=== PATIENT | female | born 1980 | race African-American/Black ===

== ENCOUNTER 2017-12-18 23:32 | Emergency (ER) | payer OTHER ==
--- NOTE | 2017-12-18 23:45 | PDOC ---
History of Present Illness - General Stated Complaint: INJURY TO FINGER Time Seen by Provider: 12/18/17 23:44 History Source: Patient Exam Limitations: No Limitations - History of Present Illness Initial Comments: 12/19/17 01:26 Best Contact: PCP: N/A Pmhx: Epilepsy/last seizure 2016 Pshx:0 Allergies: Dilantin/hives FH:0 Social Hx: Cigarettes/ 0 Alcohol/ 0 Drugs/0 LMP: depo-vera 37-year-old female who is right hand dominant presents to the ER complaining of pain to the left medial hand. Patient states while running on the treadmill and the gym, she slipped and fell onto her left hand. Patient denies head injury, neck or back pains, chest pain, extremity numbness or tingling sensation. Left hand pain is described as 6/10 dull nonradiating intermittent discomfort which is exacerbated on movement and alleviated minimally at rest. Patient denies any other complaints. Procedure: Left hand: ulnar gutter splint/ 4" fiberglass with 3" pete Past History - Past Medical History Allergies/Adverse Reactions: Allergies Allergy/AdvReac Type Severity Reaction Status Date / Time banana [Banana] Allergy Itching Verified 12/19/17 00:57 phenytoin sodium Allergy Verified 12/19/17 00:57 [From Dilantin] phenytoin sodium extended Allergy Verified 12/19/17 00:57 [From Dilantin] Home Medications: Ambulatory Orders Oxycodone HCl/Acetaminophen [Percocet 5-325 mg Tablet] 1 tab PO Q6H #12 tablet MDD 3 12/19/17 Anemia: No Asthma: No Cancer: No Cardiac Disorders: No Diabetes: No HTN: No Seizures: Yes Thyroid Disease: No - Reproductive History (#): 6 Para: 5 Cervical CA: No Dysfunctional Uterine Bleeding: No Ectopic : No Endometrial CA: No Polycystic Ovaries: No Therapeutic (s) & number: No Tubal Ligation: No Spontaneous : 0 - Immunization History Immunization Up to Date: Yes - Suicide/Smoking/Psychosocial Hx Smoking Status: No Smoking History: Never smoked Have you smoked in the past 12 months: No Number of Cigarettes Smoked Daily: 0 Hx Alcohol Use: No Drug/Substance Use Hx: No Substance Use Type: None Hx Substance Use Treatment: No Review of Systems - Review of Systems Able to Perform ROS?: Yes Comments:: 12/19/17 01:34 CONSTITUTIONAL: Absent: fever, chills, diaphoresis, generalized weakness, malaise, loss of appetite MUSCULOSKELETAL: +left medial hand pain/left 5th mc Absent: myalgia, arthralgia, joint swelling SKIN: Absent: rash, itching, pallor HEMATOLOGIC/IMMUNOLOGIC: Absent: easy bleeding, easy bruising, lymphadenopathy, frequent infections Is the patient limited French proficient: No ED Treatment Course - RADIOLOGY Radiograph Interpretation: 12/19/17 01:57 Xray left hand/ oblique displaced left 5th mc *DC/Admit/Observation/Transfer Diagnosis at time of Disposition: Left hand fracture Qualifiers: Encounter type: initial encounter Fracture type: closed Qualified Code(s): S62.92XA - Unspecified fracture of left wrist and hand, initial encounter for closed fracture - Discharge Dispostion Disposition: HOME Condition at time of disposition: Stable Decision to Admit order: No - Prescriptions Prescriptions: Oxycodone HCl/Acetaminophen [Percocet 5-325 mg Tablet] 1 tab PO Q6H #12 tablet MDD 3 - Referrals Referrals: Tony Gutierrez MD [Staff Physician] - - Patient Instructions Printed Discharge Instructions: DI for a Hand Fracture Additional Instructions: Ice 20 mins on alternate with 20 mins off for 48 horus while awake Tylenol alternate with motrin as needed for pain Keep your left hand elevated Follow up with the Orthopedics surgeon listed on your discharge this week Return to the ER for severe/persistent/worsening symptoms - Post Discharge Activity Forms/Work/School Notes: Back to Work
[2017-12-19 01:02] VITALS: BP 148/72; PULSE 84; TEMP 97.8; BMI 23.3
== END 2017-12-19 01:43 | disposition home or self-care (01) ==
LOC: JER 23:32
DX: S62.397A Other fracture of fifth metacarpal bone, left hand, initial encounter for closed fracture (principal); W31.89XA Contact with other specified machinery, initial encounter; Y93.B1 Activity, exercise machines primarily for muscle strengthening; Y92.39 Other specified sports and athletic area as the place of occurrence of the external cause; Y99.8 Other external cause status
CPT/HCPCS: 73140-TC-LT-FY; 99281-25

== ENCOUNTER 2019-03-28 14:35 | Emergency (ER) | payer OTHER ==
[2019-03-28 14:44] VITALS: BMI 28.1
[2019-03-28] MEDS ORDERED: ONDANSETRON 4 MG/2 ML VIAL IVPUSH ONE (15:58)
[2019-03-28] MEDS ORDERED: SODIUM CHLORIDE 1,000 ML IV STA (15:58)
--- NOTE | 2019-03-28 15:58 | PDOC ---
History of Present Illness - General Chief Complaint: Vomiting/Diarrhea Stated Complaint: VOMITING/DIARRHEA Time Seen by Provider: 03/28/19 15:37 History Source: Patient Exam Limitations: No Limitations Past History - Travel Traveled outside of the country in the last 30 days: No - Past Medical History Allergies/Adverse Reactions: Allergies Allergy/AdvReac Type Severity Reaction Status Date / Time acetaminophen [From Tylenol] Allergy Verified 03/28/19 14:44 banana [Banana] Allergy Itching Verified 03/28/19 14:44 phenytoin sodium Allergy Verified 03/28/19 14:44 [From Dilantin] phenytoin sodium extended Allergy Verified 03/28/19 14:44 [From Dilantin] Home Medications: Ambulatory Orders Famotidine [Pepcid] 40 mg PO DAILY #14 tablet 03/28/19 Ondansetron HCl [Zofran] 4 mg PO TID PRN #4 tablet 03/28/19 Anemia: No Asthma: No Cancer: No Cardiac Disorders: No COPD: No Diabetes: No HTN: No Seizures: Yes Thyroid Disease: No - Reproductive History (#): 6 Para: 5 Cervical CA: No Dysfunctional Uterine Bleeding: No Ectopic : No Endometrial CA: No Polycystic Ovaries: No Therapeutic (s) & number: No Tubal Ligation: No Spontaneous : 0 - Immunization History Immunization Up to Date: Yes - Psycho Social/Smoking Cessation Hx Smoking Status: No Smoking History: Never smoked Have you smoked in the past 12 months: No Number of Cigarettes Smoked Daily: 0 Hx Alcohol Use: No Drug/Substance Use Hx: No Substance Use Type: None Hx Substance Use Treatment: No Review of Systems - Review of Systems Able to Perform ROS?: Yes Comments:: 03/28/19 19:38 CONSTITUTIONAL: Absent: fever, chills, diaphoresis, generalized weakness, malaise, loss of appetite HEENT: Absent: rhinorrhea, nasal congestion, throat pain, throat swelling, difficulty swallowing, mouth swelling, ear pain, eye pain, visual Changes CARDIOVASCULAR: Absent: chest pain, loss of consciousness, palpitations, irregular heart rate, peripheral edema RESPIRATORY: Absent: cough, shortness of breath, dyspnea with exertion, orthopnea, wheezing, stridor, hemoptysis GASTROINTESTINAL: Present: abdominal pain, nausea, and vomiting. Absent: abdominal pain, abdominal distension, nausea, vomiting, diarrhea, constipation, melena, hematochezia GENITOURINARY: Absent: dysuria, frequency, urgency, hesitancy, hematuria, flank pain, genital pain MUSCULOSKELETAL: Absent: myalgia, arthralgia, joint swelling SKIN: Absent: rash, itching, pallor HEMATOLOGIC/IMMUNOLOGIC: Absent: easy bleeding, easy bruising, lymphadenopathy, frequent infections ENDOCRINE: Absent: unexplained weight gain, unexplained weight loss, heat intolerance, cold intolerance NEUROLOGIC: Absent: headache, focal weakness or paresthesias, dizziness, unsteady gait, seizure, mental status changes, bladder or bowel incontinence PSYCHIATRIC: Absent: anxiety, depression, suicidal or homicidal ideation, hallucinations. Is the patient limited Chinese proficient: No *Physical Exam - Vital Signs Last Vital Signs Temp Pulse Resp BP Pulse Ox 98 F 89 18 140/84 99 03/28/19 14:41 03/28/19 14:41 03/28/19 14:41 03/28/19 14:41 03/28/19 14:41 - Physical Exam 03/28/19 19:39 GENERAL: Well developed, well nourished. Awake and alert. No acute distress. HEENT: Normocephalic, atraumatic. PERRLA, EOMI. No conjunctival pallor. Sclera are non- icteric. Moist mucous membranes. Oropharynx is clear. NECK: Supple. Full ROM. No JVD. Carotid pulses 2+ and symmetric, without bruits. No thyromegaly. No lymphadenopathy. CARDIOVASCULAR: Regular rate and rhythm. No murmurs, rubs, or gallops. Distal pulses are 2+ and symmetric. PULMONARY: No evidence of respiratory distress. Lungs clear to auscultation bilaterally. No wheezing, rales or rhonchi. ABDOMINAL: Epigastric discomfort. Soft. Non-tender. Non-distended. No rebound or guarding. No organomegaly. Normoactive bowel sounds. MUSCULOSKELETAL Normal range of motion at all joints. No bony deformities or tenderness. No CVA tenderness. EXTREMITIES: No cyanosis. No clubbing. No edema. No calf tenderness. SKIN: Warm and dry. Normal capillary refill. No rashes. No jaundice. NEUROLOGICAL: Alert, awake, appropriate. Cranial nerves 2-12 intact. No deficits to light touch and temperature in face, upper extremities and lower extremities. No motor deficits in the in face, upper extremities and lower extremities. Normoreflexic in the upper and lower extremities. Normal speech. Toes are down- going bilaterally. Gait is normal without ataxia. PSYCHIATRIC: Cooperative. Good eye contact. Appropriate mood and affect. ED Treatment Course - LABORATORY CBC & Chemistry Diagram: 03/28/19 16:24 03/28/19 16:24 Medical Decision Making - Medical Decision Making 03/28/19 19:23 Patient is 38-year-old female with no past medical history who presents to the ER today for 2 days of nausea, vomiting. She states that she also has some epigastric tenderness however the nausea has been more so she presents to the ER for medication for her nausea. She states that every time she tries to eat she throws up. Denies taking any medication for her symptoms. Denies fever, chills, earache, sore throat, chest pain, difficulty breathing and urinary symptoms. A/P: Gastroenteritis On exam patient with epigastric tenderness without rebound guarding. Negative Caceres sign Basic labs, urine and IV fluids ordered Lab work shows doubled liver enzymes consistent with transaminases as well as a bilirubin of 1.2. Given nausea and vomiting will obtain right upper quadrant ultrasound to rule out stones or biliary tract dilatation Patient reports improvement after GI cocktail. Signout given to ADARSH Keller. Patient pending ultrasound. Discharge - Discharge Information Problems reviewed: Yes Clinical Impression/Diagnosis: Abdominal pain Qualifiers: Abdominal location: epigastric Qualified Code(s): R10.13 - Epigastric pain Disposition: HOME - Additional Discharge Information Prescriptions: Famotidine [Pepcid] 40 mg PO DAILY #14 tablet Ondansetron HCl [Zofran] 4 mg PO TID PRN #4 tablet PRN Reason: Nausea And/Or Vomiting - Follow up/Referral Referrals: Rayshawn Snow MD [Primary Care Provider] - - Patient Discharge Instructions Patient Printed Discharge Instructions: Nausea and Vomiting-Adult Additional Instructions: Drink plenty of fluids start a BRAT ( bananas, rice apples toast) Take Zofran 3 times a day as needed for nausea/vomiting. Take Pepcid as prescribed. follow up with your doctor return to the ER if symptoms worsen - Post Discharge Activity Work/Back to School Note: Back to Work
[2019-03-28] MEDS ORDERED: FAMOTIDINE 20 MG/50 ML IVPB 20 MG/50 ML MG IVPB ONE ×2 (15:59→16:15)
[2019-03-28] MEDS ORDERED: ONDANSETRON 4 MG/2 ML VIAL ONE (16:15)
[2019-03-28 16:39] LABS: BASO % 0.8 % (0-2.0); EOS % 0.3 % (0-4.5); HEMATOCRIT 42.7 % (32.4-45.2); HEMOGLOBIN 14.5 GM/dL (10.7-15.3); MCH 34.8 pg (25.7-33.7); MEAN CELL VOLUME 102.2 fl (80-96); MEAN PLT VOLUME 9.8 fl (7.5-11.1); MONO % 5.6 % (3.8-10.2); NEUT % 65.3 % (42.8-82.8); PLATELET COUNT 238 K/MM3 (134-434); RBC 4.18 M/mm3 (3.60-5.2); RDW 13.7 % (11.6-15.6); WHITE BLOOD COUNT 8.5 K/mm3 (4.0-10.0)
[2019-03-28 16:59] LABS: EPI CELLS 10.9 /HPF (0-5/HPF); HYALINE CASTS 26 /lpf (0-8); URINE APPEARANCE CLOUDY; URINE BACTERIA 409.2 /hpf (NEGATIVE); URINE BILIRUBIN 1+ (NEGATIVE); URINE COLOR DK YELLOW; URINE GLUCOSE (UA) NEGATIVE (NEGATIVE); URINE KETONE 4+ (NEGATIVE); URINE LEUK ESTERASE NEGATIVE (NEGATIVE); URINE NITRITE NEGATIVE (NEGATIVE); URINE PROTEIN 1+ (NEGATIVE)
[2019-03-28 17:06] LABS: ALBUMIN 4.1 g/dl (3.4-5.0); BILIRUBIN,TOTAL 1.2 mg/dL (0.2-1); CALCIUM 9.5 mg/dL (8.5-10.1); CREATININE 0.8 mg/dL (0.55-1.3); POTASSIUM 4.2 mmol/L (3.5-5.1); TOT PROT 7.8 g/dl (6.4-8.2)
[2019-03-28 17:15] LABS: URINE RBC 3.9 /hpf (0-4); URINE WBC 14.1 /hpf (0-5)
--- NOTE | 2019-03-28 19:52 | PDOC ---
*Physical Exam - Vital Signs Last Vital Signs Temp Pulse Resp BP Pulse Ox 98 F 89 18 140/84 99 03/28/19 14:41 03/28/19 14:41 03/28/19 14:41 03/28/19 14:41 03/28/19 14:41 ED Treatment Course - LABORATORY CBC & Chemistry Diagram: 03/28/19 16:24 03/28/19 16:24 - ADDITIONAL ORDERS Additional order review: Laboratory Results 03/28/19 03/28/19 03/28/19 16:24 16:00 16:00 Sodium 139 Potassium 4.2 Chloride 101 Carbon Dioxide 24 Anion Gap 14 BUN 10.0 Creatinine 0.8 Est GFR (CKD-EPI)AfAm 107.64 Est GFR (CKD-EPI)NonAf 92.87 Random Glucose 76 Calcium 9.5 Total Bilirubin 1.2 H AST 104 H ALT 78 H Alkaline Phosphatase 117 Total Protein 7.8 Albumin 4.1 Urine Color Dk yellow Urine Appearance Cloudy Urine pH 6.0 Ur Specific [place] 1.033 Urine Protein 1+ H Urine Glucose (UA) Negative Urine Ketones 4+ H Urine Blood 3+ H Urine Nitrite Negative Urine Bilirubin 1+ H Urine Urobilinogen 1.0 Ur Leukocyte Esterase Negative Urine WBC (Auto) 14.1 Urine RBC (Auto) 3.9 Urine Casts (Auto) 26 U Epithel Cells (Auto) 10.9 Urine Bacteria (Auto) 409.2 Urine HCG, Qual Negative 03/28/19 16:24 RBC 4.18 MCV 102.2 H MCHC 34.0 RDW 13.7 MPV 9.8 Neutrophils % 65.3 D Lymphocytes % 28.0 D Monocytes % 5.6 D Eosinophils % 0.3 Basophils % 0.8 - Medications Given in the ED: ED Medications Discontinued Medications Generic Name Dose Route Start Last Admin Trade Name Freq PRN Reason Stop Dose Admin Famotidine/Sodium Chloride 20 mg in 50 mls @ 100 mls/hr 03/28/19 15:59 16:27 Pepcid 20 Mg Premixed Ivpb - IVPB 03/28/19 16:28 100 mls/hr ONCE ONE Administration Sodium Chloride 1,000 mls @ 1,000 mls/hr 03/28/19 15:58 03/28/19 16:27 Normal Saline - IV 03/28/19 16:57 1,000 mls/hr ASDIR STA Administration Ondansetron HCl 4 mg 03/28/19 15:58 03/28/19 16:27 Zofran Injection IVPUSH 03/28/19 15:59 4 mg ONCE ONE Administration Medical Decision Making - Medical Decision Making 03/28/19 19:46 us: FATTY LIVER NO ACUTe finding. will d/c home Discharge - Discharge Information Problems reviewed: Yes Clinical Impression/Diagnosis: Abdominal pain Qualifiers: Abdominal location: epigastric Qualified Code(s): R10.13 - Epigastric pain Disposition: HOME - Additional Discharge Information Prescriptions: Famotidine [Pepcid] 40 mg PO DAILY #14 tablet Ondansetron HCl [Zofran] 4 mg PO TID PRN #4 tablet PRN Reason: Nausea And/Or Vomiting - Follow up/Referral Referrals: Rayshawn Snow MD [Primary Care Provider] - - Patient Discharge Instructions Patient Printed Discharge Instructions: Nausea and Vomiting-Adult Additional Instructions: Drink plenty of fluids start a BRAT ( bananas, rice apples toast) Take Zofran 3 times a day as needed for nausea/vomiting. Take Pepcid as prescribed. follow up with your doctor return to the ER if symptoms worsen - Post Discharge Activity Work/Back to School Note: Back to Work
[2019-03-28 20:30] VITALS: BP 130/78; PULSE 82; TEMP 98.2
== END 2019-03-28 20:30 | disposition home or self-care (01) ==
LOC: JER 14:35
PROC: 3E033GC Introduction of Other Therapeutic Substance into Peripheral Vein, Percutaneous Approach (ICD-10-PCS; principal; 2019-03-28)
PROC: 3E033GC Introduction of Other Therapeutic Substance into Peripheral Vein, Percutaneous Approach (ICD-10-PCS; 2019-03-28)
DX: K52.9 Noninfective gastroenteritis and colitis, unspecified (principal); Z86.69 Personal history of other diseases of the nervous system and sense organs; Z88.8 Allergy status to other drugs, medicaments and biological substances; Z91.018 Allergy to other foods
CPT/HCPCS: 36415; 76705-TC; 80053; 81003; 84703; 85025; 87086; 96365; 96375; 99283-25; J7030

== ENCOUNTER 2019-11-10 01:32 | Emergency (ER) | payer OTHER ==
[2019-11-10 02:01] VITALS: BMI 28.8
[2019-11-10] MEDS ORDERED: IBUPROFEN 400 MG TABLET (FP) PO ONE ×2 (02:05→02:16)
--- NOTE | 2019-11-10 02:35 | PDOC ---
History of Present Illness - General Chief Complaint: Head/Neck problem Stated Complaint: HEADACHE Time Seen by Provider: 11/10/19 01:48 History Source: Patient Exam Limitations: No Limitations - History of Present Illness Initial Comments: 11/10/19 02:21 39F PMH epilepsy presenting with gradually worsening occipital headache after fall down approximately 5 steps with head strike on step. No LOC. No visual, auditory sx. No numbness, tingling, weakness. No neck pain. Tdap on 2017 . Past History - Medical History Allergies/Adverse Reactions: Allergies Allergy/AdvReac Type Severity Reaction Status Date / Time acetaminophen [From Tylenol] Allergy Verified 11/10/19 02:18 banana [Banana] Allergy Itching Verified 11/10/19 02:18 phenytoin sodium Allergy Verified 11/10/19 02:18 [From Dilantin] phenytoin sodium extended Allergy Verified 11/10/19 02:18 [From Dilantin] Home Medications: Ambulatory Orders Famotidine [Pepcid] 40 mg PO DAILY #14 tablet 03/28/19 Ondansetron HCl [Zofran] 4 mg PO TID PRN #4 tablet 03/28/19 Anemia: No Asthma: No Cancer: No Cardiac Disorders: No COPD: No Diabetes: No HTN: No Seizures: Yes Thyroid Disease: No - Reproductive History (#): 6 Para: 5 Cervical CA: No Dysfunctional Uterine Bleeding: No Ectopic : No Endometrial CA: No Polycystic Ovaries: No Therapeutic (s) & number: No Tubal Ligation: No Spontaneous : 0 - Immunization History Immunization Up to Date: Yes - Psycho-Social/Smoking History Smoking Status: No Smoking History: Never smoked Have you smoked in the past 12 months: No Number of Cigarettes Smoked Daily: 0 - Substance Abuse Hx (Audit-C & DAST Scrn) How often the patient has a drink containing alcohol: Never Score: In Men: 4 or > Positive; In Women: 3 or > Positive: 0 Screen Result (Pos requires Nsg. Audit-10AR): Negative In the last yr the pt used illegal drug/Rx for NonMed reason: No Score: Yes response is considered Positive: 0 Screen Result (Positive result requires Nsg. DAST-10): Negative Review of Systems - Review of Systems Comments:: 11/10/19 05:51 CONSTITUTIONAL: Denies F / C HEENT: + headache. denies lightheadedness, dizziness, changes in vision / he aring, diplopia, blurry vision, rhinorrhea RESP: Denies SOB CARD: Denies chest pain GI: Denies N / V / D, abdominal pain : Denies dysuria NEURO: Denies numbness, tingling, weakness MSK: Denies back pain SKIN: Denies rashes *Physical Exam - Vital Signs Last Vital Signs Temp Pulse Resp BP Pulse Ox 98.8 F 126 H 18 124/89 99 11/10/19 01:48 11/10/19 01:48 11/10/19 01:48 11/10/19 01:48 11/10/19 01:48 - Physical Exam 11/10/19 05:51 GEN: moderate distress 2/2 pain. AAOx3. HEENT: +TTP of the occiput w/o obvious deformities. NC/AT, CN II-XII intact, EOMI, PERRL. No facial asymmetry. Moist mucous membranes. Normal voice. Supple neck w/ FROM. No midline or paraspinal TTP. CV: S1/S2, RRR, no m/r/g LUNG: CTAB, no wheezes, crackles, rales, rhonchi. GI: Soft, ndnt, +BS, no guarding, no rebound. No masses. Neg CVAT b/l. MSK: 2+ distal pulses. No obvious deformities of all extremities. +TTP of the right thenar eminence. FROM of the fingers and wrists; no pain on ROM. SKIN: Warm, dry, no rashes appreciated. PSYCH: Normal mood and affect. NEURO: Moving all extremities well. 5/5 strength UE and LE b/l. symmetric sensation. ambulates w/ normal gait. ED Treatment Course - RADIOLOGY Radiology Studies Ordered: Category Date Time Status HEAD CT WITHOUT CONTRAST [CT] Stat CT Scan 11/10/19 02:12 Ordered - Medications Given in the ED: ED Medications Discontinued Medications Generic Name Dose Route Start Last Admin Trade Name Freq PRN Reason Stop Dose Admin Ibuprofen 400 mg 11/10/19 02:05 11/10/19 02:17 Motrin - PO 11/10/19 02:06 400 mg ONCE ONE Administration Medical Decision Making - Medical Decision Making 11/10/19 05:51 39F w/ occipital headache s/p fall down ~5 steps w/ head strike and no LOC. gradual onset. neuro intact. Borderline on faroese head CT rule. - CT head (results will be delayed 2/2 IT issue with reads) - pain ctrl - right hand XR - likely dispo home 11/10/19 04:24 headache decreased in intensity s/p tx IOC EXAM: HEAD CT WITHOUT CONTRAST HISTORY: Trauma COMPARISON: None. FINDINGS: The ventricular system is midline and nondilated. The sulcal pattern is normal for the patient's age. There is no bleed, mass, extra-axial fluid collection or mass effect. No skull fracture or skull lesion is identified. The visualized paranasal sinuses and mastoid air cells are clear. IMPRESSION: Normal exam. THIS DOCUMENT HAS BEEN ELECTRONICALLY SIGNED Albino Sebastian MD 11/10/2019 04:21 EST Hand XR appears w/o obvious fracture DC home w/ pcp f/u and return precautions Discharge - Discharge Information Problems reviewed: Yes Clinical Impression/Diagnosis: Headache Condition: Stable Disposition: HOME - Admission No - Follow up/Referral Referrals: Rayshawn Snow MD [Primary Care Provider] - - Patient Discharge Instructions Patient Printed Discharge Instructions: DI for Headache Additional Instructions: Your CAT scan was reassuring. A copy of the report was provided to you. Take ibuprofen as directed on the label for headache. Drink plenty of fluids. Continue your home medications as prescribed. Follow up with your Primary Care Doctor regarding this ED visit in the next 5-10 days. Return to the nearest Emergency Department if you experience new or worsening symptoms - Post Discharge Activity
--- NOTE | 2019-11-10 03:03 | PDOC ---
Attending Attestation - Resident Resident Name: JudahBertin - ED Attending Attestation I have performed the following: I have examined & evaluated the patient, The case was reviewed & discussed with the resident, I agree w/resident's findings & plan, Exceptions are as noted - HPI HPI: 11/10/19 02:58 39 yo F here with occipital headache and R wrist pain s/p mechanical fall down 5 stairs this evening. Not on any a/c. Denies LOC. Reports headache was gradual in onset. Denies changes in vision. R hand dominant. Able to range fingers and wrist but reports she has pain with movement. Denies any numbness or weakness in extremities. No other injuries or complaints. - Physicial Exam PE: 11/10/19 02:59 General: well appearing HEENT: NCAT, EOMI, no luong sign, no racoon eyes, visual acuity grossly intact Extremities: +radial pulses, no snuffbox tenderness, flexion/extension/abduction/adduction of digits intact, mild ttp radial aspect of R wrist without gross deformity or significant swelling, f lexion/extension/pronation/supination intact b/l - Medical Decision Making 11/10/19 03:02 39 yo F with headache and R wrist pain s/p mechanical fall, low suspicion for ICH however as fall was down 5 stairs can be considered dangerous mechanism so will get CT head to r/o ICH. Plan: -pain control as needed -CT head -xr R wrist/hand -reassess, if imaging withotu any concerning findings will d/c with return precautions, recommend PMD f/u and supportive care at home This clinical encounter is taking place during a federal and state health care emergency attributable to the novel [place] Virus pandemic. The [place] of the Department of Health and Human Services has declared, pursuant to the Public Health Service Act 319F-3 (42 U.S.C. 247d-6d), that a covered persons activities related to medical countermeasures against COVID-19 will be immune from liability under Federal and State law. Imaging without any concerning findings. Pain improved. Will d/c with return precautions, recommend PMD f/u and supportive carecamilo gregory. Discharge - Discharge Information Problems reviewed: Yes Clinical Impression/Diagnosis: Headache Condition: Stable Disposition: HOME - Follow up/Referral Referrals: Rayshawn Snow MD [Primary Care Provider] - - Patient Discharge Instructions Patient Printed Discharge Instructions: DI for Headache Additional Instructions: Your CAT scan was reassuring. A copy of the report was provided to you. Take ibuprofen as directed on the label for headache. Drink plenty of fluids. Continue your home medications as prescribed. Follow up with your Primary Care Doctor regarding this ED visit in the next 5-10 days. Return to the nearest Emergency Department if you experience new or worsening symptoms - Post Discharge Activity
[2019-11-10 04:35] VITALS: BP 103/65; PULSE 87; TEMP 98
== END 2019-11-10 05:13 | disposition home or self-care (01) ==
LOC: JER 01:32
DX: R51 Headache (principal)
CPT/HCPCS: 70450-TC; 73110-TC-RT-FY; 73130-TC-RT-FY; 99284-25

== ENCOUNTER 2021-01-09 23:23 | Emergency (ER) | payer OTHER ==
[2021-01-09] MEDS ORDERED: KETOROLAC TROMETHAMINE 30 MG/1 ML VIAL IM ONE (23:51)
[2021-01-10] MEDS ORDERED: LIDOCAINE 5% TOPICAL PATCH TP ONE
[2021-01-10] MEDS ORDERED: LIDOCAINE 5% TOPICAL PATCH ONE (00:27)
[2021-01-10 01:15] VITALS: BP 117/86; PULSE 78; TEMP 98.9; BMI 22.8
[2021-01-10] MEDS ORDERED: LIDOCAINE PATCH REMOVAL MC SCH (22:00)
== END 2021-01-10 01:15 | disposition home or self-care (01) ==
LOC: FER 23:23
PROC: 3E0233Z Introduction of Anti-inflammatory into Muscle, Percutaneous Approach (ICD-10-PCS; principal; 2021-01-09)
DX: S39.012A Strain of muscle, fascia and tendon of lower back, initial encounter (principal); X50.1XXA Overexertion from prolonged static or awkward postures, initial encounter; Y93.84 Activity, sleeping
CPT/HCPCS: 99284-25